=== PATIENT | female | born 1995 | race Caucasian/White ===

== ENCOUNTER → 2019-11-20 | Outpatient (CLI) | payer OTHER ==
[~2019-11-20] MED LIST: PRENTAB9 PO
== END ==
LOC: M LDO 20:28
PROVIDERS: ATTEND Obstetrics & Gynecology
DX: O47.1 False labor at or after 37 completed weeks of gestation (principal); Z3A.37 37 weeks gestation of pregnancy
CPT/HCPCS: 59025; G0378; G0463

== ENCOUNTER 2019-12-02 11:46 | Inpatient (IN) | payer OTHER ==
[~2019-12-02] VITALS: Ht 167.6 cm; Wt 94.0 kg
[2019-12-02 11:59] VITALS: BP 115/78
[2019-12-02] MEDS ORDERED: PRENTAB9 PO (12:18)
[2019-12-02 12:42] LABS: HEMATOCRIT 33.1 % (36.0-47.0); MEAN CORPUSCULAR HEMOGLOBIN 28.6 pg (27.0-33.0); MEAN CORPUSCULAR HGB CONC 33.2 g/dl (32.0-36.5); PLATELET COUNT, AUTOMATED 310 10^3/uL (150-450); RED BLOOD COUNT 3.85 10^6/uL (4.00-5.40); WHITE BLOOD COUNT 13.6 10^3/uL (4.0-10.0)
[2019-12-02] MEDS ORDERED: LACTATED RINGER'S 1000 ML IV STA (12:47)
[2019-12-02] MEDS ORDERED: SIMETHICONE 80 MG CHEW TAB PO PRN (13:00)
[2019-12-02] MEDS ORDERED: diphenhydrAMINE 25MG CAP PO PRN (13:00)
[2019-12-02] MEDS ORDERED: CALCIUM CARBONATE 500 MG CHEW U/D PO PRN (13:00)
[2019-12-02] MEDS ORDERED: LR 1,000 ML IV SCH (13:00)
--- NOTE | 2019-12-02 13:07 | HPEPDOC ---
Obstetrical History & Physical General Date of Admission Dec 02, 2019 at 12:07 History of Present Illness Patient is a 24yo at 39.3wks by redating 7wk US. C/o ctx since 0400 today. No VB or LOF. +FM. No headache or visual changes. Chief Complaint: Contractions, term Information Provided By: Patient : 3 Term: 2 Livin Care Care: Good Care Dating Final EDC: Dec 06, 2019 Final EDC by: 1st trimester (US) Antepartum Course Height (inches): 66 Pre- weight (lbs.): 185 Admission Weight (lbs.): 208 Change in Weight (lbs.): 23 Past Medical History Past Obstetrical History : Past Obstetrical History: Multigravida Type of Delivery: Spontaneous Vaginal Del. Weight of Infant (grams): 2800 Complications: No [employer] TR[employer]ER History: Abnormal Pap (HSIL during ), Human papillomavirus(HPV) Past Medical History Medical History none Surgical History: Other (x2 knee surgeries) Social History Marital Status: Family situation: Spouse/partner home Psychosocial History: No pertinent psych hx * Smoker: non-smoker Alcohol: Denies Abuse Violence Screening Have you been hit/kicked/slapp: No Have you been sexually assault: No Imunizations Tdap status: current Influenza Status: declined Allergies Coded Allergies: strawberry (Verified Allergy, Severe, FACIAL SWELLING, 12/02/19) Medications Scheduled No.137/Iron/Folic Acd ( Vitamin Tablet) 1 Each Tablet, 1 TAB PO DAILY Physical Examination Physical Examination GENERAL: Alert and oriented times three. BREAST: . ABDOMEN: Gravid and non-tender to touch. FETUS: Is vertex (VTX) by sterile vaginal examination (SVE), fetus is 2800 by Blanco. HEART RATE: Regular rate and rhythm. LUNGS: Clear to auscultation (CTA). EXTREMITIES: No edema. Laboratory Data 24H LABS Laboratory Tests 2 12/02/19 12:17: Serology Scanned Report Hepatitis B Testing 12/02/19 12:30: Nucleated Red Blood Cells % (auto) 0.0 CBC/BMP Laboratory Tests 12/02/19 12:30 Urine Culture: Contaminated Pertinent Laboratoy Data Blood Type: O+ RBC Antibody Screen: Negative HIV: Negative Hepatitis B: Negative Rapid Plasma Reagin: Nonreactive Rubella: Immune Varicella: Immune Group B Streptococcus: Negative Glucose Tolerance Test: 93 Anatomy Ultrasound Ultrasound Date: Jul 09, 2019 Placenta Location: Anterior Normal Anatomy: Yes Placenta Previa: No Estimated Weight (grams): 258 Steroid Therapy Steroid Therapy: No Vaginal Examination Dilation: 4 cm Effacement: 80% Station: -1 Presentation: Cephalic presentation Assessment Heart Rate (FHR): 120 Variability: Moderate Accelerations: Positive Decelerations: None Tocometer Contractions: Yes Frequency: every 1-5 min. Multi-drug resistant Organism: No history of MDRO Assessment/Plan Assessment Patient is a 24yo at 39.3wks by redating 7wk US. Admit for active labor and expect delivery by . Pain management per patient preference, which was discussed with her. I discussed risks of with patient of failure with section, distress, bleeding, infection, , vaginal or perin eal or neighboring organ tear. Currently, fetus is reassuring. GBS is negative, no need for antibiotics. Plan Admit and orient. 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 Diet: clears. Group B Streptococcus (GBS) negative. Labs and intravenous (IV) per unit protocol. Counseled on Pitocin augmentation. Lactated Ringers (LR): Bolus 500 mL, then at 125 mL/hr. Anticipate normal spontaneous delivery (). C-S or VAVD as appropriate which was d/w patient. Pain management per patient desire. Rosaura Morgan MD Dec 02, 2019 13:07
[2019-12-02] MEDS ORDERED: FENTANYL 2MCG/ML ROPIVACAINE 0.2% IN 0.9% NACL 100ML IVBAG As Ordered ONE (13:40)
[2019-12-02] MEDS ORDERED: OXYTOCIN 30 UNITS IN 0.9% NaCl 500ML IV BAG (J2590) As Ordered ONE (13:52)
[2019-12-02 14:19] VITALS: BP 133/96
[2019-12-02] MEDS ORDERED: ONDANSETRON 4MG/2ML VIAL IV PRN (14:30)
[2019-12-02] MEDS ORDERED: MOM 30ML SUSPENSION UDC PO PRN (14:30)
[2019-12-02] MEDS ORDERED: OXYTOCIN DRIP 30 UNITS in IV 1 EA IV SCH (14:30)
[2019-12-02] MEDS ORDERED: DIBUCAINE 1% OINTMENT 30GM TOP PRN (14:30)
[2019-12-02] MEDS ORDERED: LIDOCAINE 1% MDV 20ML VIAL INFIL ONE (14:30)
[2019-12-02] MEDS ORDERED: ANUSOL HC CREAM 30GM TOP PRN (14:30)
[2019-12-02] MEDS ORDERED: RHOGAM 300 MCG (1500 IU) INJ (J2790) IM SCH (14:30)
[2019-12-02] MEDS ORDERED: ACETAMINOPHEN 500 MG TAB PO PRN (14:30)
[2019-12-02] MEDS ORDERED: METHYLERGONOVINE MALEATE 0.2 MG TAB PO PRN (14:30)
[2019-12-02] MEDS ORDERED: MEASLES,MUMPS,RUBELLA VACCINE INJ (MMR-II) (90707) SC SCH (14:30)
--- NOTE | 2019-12-02 14:33 | DNPDOC ---
[facility] Delivery Note Delivery Note DATE OF DELIVERY: 12/02/2019 PREDELIVERY DIAGNOSIS: 39-4/7 weeks' gestation and labor. POST DELIVERY DIAGNOSIS: Delivered. PROCEDURE: Spontaneous vaginal delivery. AGRICULTURAL ECONOMICS TEACHER: Dr. Rosaura Morgan ANESTHESIA: Local. ESTIMATED BLOOD LOSS: 100 mL. FINDINGS: 7 pound 3 ounce 3260gm girl infant, Score 8/9, nuchal cord times 1. DELIVERY SUMMARY: Patient is a 24-year-old 1 now para 1 who was admitted to labor and delivery for active labor for 10hours. Patient AROM clear. Baby girl head was delivered without difficulty over intact perineum in TRINY position at 1355. The nose and mouth were bulb suctioned. x1 nuchal cord was noted and reduced. The shoulders were then delivered without difficulty. was handed on mother's belly. Cord was then clamped x2 and cut after pulsation. Pitocin bolus was started. Perineum and vagina was inspected and found to have a 1st degree laceration. This was repaired with 1% lidocaine 6cc with 2-0 chromic. The placenta was then delivered at 1410 spontaneously intact. Cord had a 3 vessel cord. EBL was 100mL. The vagina and perineum were reinspected and no further lacerations were found and hemostasis was good. Fundus was firm. Patient tolerated delivery well. Rosaura Morgan MD Dec 02, 2019 14:33
[2019-12-02 17:57] VITALS: BP 123/72
[2019-12-02] MEDS: DOCUSATE SODIUM 100 MG CAP PO SCH (21:07)
[2019-12-02] MEDS: IBUPROFEN 800 MG TAB PO PRN (22:22)
--- NOTE | 2019-12-03 04:30 | IPNPDOC ---
Progress Note Date of Service: Dec 03, 2019 Day#: 1 Progress Note SUBJECT: Patient is a 24-year-old 3 now Para 3 status post uncomplicated spontaneous vaginal delivery with post 1st degree laceration and repair, doing well day # 1. She has been ambulating, voiding spontaneously without issue and tolerating regular diet. Breast feeding without issue. Reports lochia is like a normal period. Patient is ambulating well. Reports some cramping with . Has no pain. OBJECTIVE: VITAL SIGNS: Within normal limits, afebrile. GENERAL: No acute distress HEENT: MMM BREAST: Nontender, no erythema CARDIOVASCULAR EXAMINATION: RRR RESPIRATORY EXAMINATION: Bilaterally clear ABDOMINAL EXAMINATION: Soft, appropriate tenderness, nondistended, fundus -2 PERINEUM: Intact, minimal lochia EXTREMITIES: no edema, nontender ASSESSMENT: Patient is a 24-year-old 3 now Para 3 status post uncomplicated spontaneous vaginal delivery with post 1st degree laceration and repair, doing well day # 1 around 1400. Vitals within normal limits, afebrile, hemodynamically stable with no evidence of infection. PLAN: 1. Continue care and possible discharge this afternoon. 2. Tylenol and Motrin for pain. 3. Encourage breast feeding and ambulation. VS, I&O, 24H, Fishbone Laboratory Data 24H LABS Laboratory Tests 2 12/02/19 12:17: Serology Scanned Report Hepatitis B Testing 12/02/19 12:30: Nucleated Red Blood Cells % (auto) 0.0 CBC/BMP Laboratory Tests 12/02/19 12:30 Rosaura Morgan MD Dec 02, 2019 14:37
[2019-12-03 06:10] VITALS: BP 126/76
[2019-12-03] MEDS: IBUPROFEN 800 MG TAB PO PRN ×2 (07:35→21:40)
[2019-12-03] MEDS: PRENATAL VITAMINS CHEWABLE TABLET PO SCH (08:07)
[2019-12-03] MEDS: DOCUSATE SODIUM 100 MG CAP PO SCH ×2 (08:08→19:41)
[2019-12-03 18:00] VITALS: BP 124/76
[2019-12-04 06:00] VITALS: BP 124/60
--- NOTE | 2019-12-04 06:39 | OBDS ---
[facility] Obstetrical Discharge Sum. Obstetrical Discharge Summary Date: Dec 04, 2019 : 3 Term: 3 Livin VDRL: Non-Reactive Rh: Positive Rubella: Immune Labor active Delivery Sex: Female Weight: grams (3260) Anesthesia: Local Anesthesia A/P, Post Course List any complications Admission diagnosis: Active Labor, Term Discharge diagnosis: Active Labor, Term Condition at Discharge: Stable Discharge Instructions: Home Activity: Ad earle with pelvic rest Diet: Regular Medications: As received during 36wk visit Follow-up: 6wks Other: None HOSPITAL COURSE: Patient was admitted for active labor . She had an uncomplicated . Her course was uncomplicated with normal lochia, pain and spontaneous voiding. She ambulated and ate without difficulty. Rosaura Morgan MD Dec 02, 2019 14:39 MARIAMA MARCELINO DO Dec 04, 2019 06:39
--- NOTE | 2019-12-04 06:44 | IPNPDOC ---
Progress Note Date of Service: Dec 04, 2019 Day#: 2 Progress Note SUBJECT: 24-year-old status post uncomplicated spontaneous vaginal delivery at 39+4 weeks over 1st degree perineal laceration doing well day #2. She has been ambulating, voiding spontaneously without issue and tolerating regular diet. She is formula feeding, denies any breast concerns. Reports lochia is decreasing. Patient is ambulating well. Reports pain is controlled with pain meds. Voiding without difficulty. OBJECTIVE: VITAL SIGNS: Within normal limits, afebrile. Alert and oriented times three. RESP: no exaggerated respiratory effort appreciated CARDS: well-perfused Abdomen: Fundus firm at U-1. Soft, NTTP. : small lochia, mild edema Ext: +1/4 pitting pedal edema, no calf tenderness ASSESSMENT: 24-year-old 3 now Para 3 status post uncomplicated spontaneous vaginal delivery after presenting in active labor doing well on day 2. Vitals within normal limits, afebrile, hemodynamically stable with no evidence of infection. PLAN: 1. Discharge to home today. 2. Tylenol and Motrin for pain. 3. Encourage ambulation OOB as tolerated, regular diet as tolerated 4. Routine PP visit in 6 weeks in clinic. 5. Discussed return precautions at length. VS, I&O, 24H, Fishbone Vital Signs/I&O Vital Signs Date Time Temp Pulse Resp B/P (MAP) Pulse Ox O2 Delivery O2 Flow Rate FiO2 12/03/19 18:00 97.8 74 8 124/76 (92) 98 Room Air MARIAMA MARCELINO DO Dec 04, 2019 06:44
[2019-12-04] MEDS: DOCUSATE SODIUM 100 MG CAP PO SCH (08:16)
[2019-12-04] MEDS: IBUPROFEN 800 MG TAB PO PRN (08:16)
[2019-12-04] MEDS: PRENATAL VITAMINS CHEWABLE TABLET PO SCH (08:16)
== END 2019-12-04 11:40 | disposition home or self-care (01) | DRG 807 ==
LOC: M LDO 11:46 → EDBD 12:07 → M LDI 12:07 → M OBS 16:31
PROVIDERS: ADMIT Obstetrics & Gynecology; ATTEND Obstetrics & Gynecology
PROC: 10E0XZZ Delivery of Products of Conception, External Approach (ICD-10-PCS; principal; 2019-12-02)
PROC: 10907ZC Drainage of Amniotic Fluid, Therapeutic from Products of Conception, Via Natural or Artificial Opening (ICD-10-PCS; 2019-12-02)
PROC: 0HQ9XZZ Repair Perineum Skin, External Approach (ICD-10-PCS; 2019-12-02)
DX: O69.81X0 Labor and delivery complicated by cord around neck, without compression, not applicable or unspecified (principal); Z37.0 Single live birth; Z3A.39 39 weeks gestation of pregnancy; O70.0 First degree perineal laceration during delivery

== ENCOUNTER 2020-07-30 09:48 | Day surgery (SDC) | payer OTHER ==
[~2020-07-30] VITALS: Ht 170.2 cm; Wt 98.0 kg
[~2020-07-30 09:48] MED LIST changes: +LR 1,000 ML IV ONE; +birth control pill PO
[2020-07-30 10:33] LABS: HEMATOCRIT 38.5 % (36.0-47.0); HEMOGLOBIN 12.2 g/dl (12.0-15.5); MEAN CORPUSCULAR HEMOGLOBIN 26.5 pg (27.0-33.0); MEAN CORPUSCULAR HGB CONC 31.7 g/dl (32.0-36.5); MEAN CORPUSCULAR VOLUME 83.5 fl (80.0-96.0); PLATELET COUNT, AUTOMATED 344 10^3/uL (150-450); RED BLOOD COUNT 4.61 10^6/uL (4.00-5.40); WHITE BLOOD COUNT 9.9 10^3/uL (4.0-10.0)
[2020-07-30] MEDS ORDERED: MIDAZOLAM INJ 2MG/2ML VIAL (J2250 PER 1MG) As Ordered ONE (10:35)
[2020-07-30] MEDS ORDERED: ROCURONIUM BROMIDE 50 MG/5 ML VIAL As Ordered ONE ×2 (10:35→11:07)
[2020-07-30] MEDS ORDERED: propofoL 200 MG/20 ML VIAL As Ordered ONE ×2 (10:35→11:05)
[2020-07-30] MEDS ORDERED: ONDANSETRON 4MG/2ML VIAL As Ordered ONE (10:35)
[2020-07-30] MEDS ORDERED: fentaNYL 100 MCG/2 ML INJECTION (J3010) As Ordered ONE (10:35)
[2020-07-30] MEDS ORDERED: dexameTHASONE 4 MG/ML 1ML VIAL (J1100 PER 1MG) As Ordered ONE (10:35)
[2020-07-30] MEDS ORDERED: LIDOCAINE 2% 100MG/5ML SDV (FOR ANES.) As Ordered ONE ×2 (10:35→11:06)
[2020-07-30] MEDS ORDERED: BUPIVACAINE HCL 0.5% 30 ML VIAL As Ordered ONE (10:57)
[2020-07-30 11:13] LABS: APPEARANCE, URINE CLEAR (CLEAR); BACTERIA, URINE AUTO NEGATIVE (NEGATIVE); BILIRUBIN, URINE AUTO NEGATIVE (NEGATIVE); BLOOD, URINE BLOOD NEGATIVE (NEGATIVE); COLOR, URINE YELLOW (YELLOW); GLUCOSE, URINE (UA) AUTO NEGATIVE (NEGATIVE); KETONE, URINE AUTO NEGATIVE (NEGATIVE); LEUKOCYTE ESTERASE, URINE AUTO NEGATIVE (NEGATIVE); MUCUS, URINE SMALL (NEGATIVE); NITRITE, URINE AUTO NEGATIVE (NEGATIVE); PROTEIN, URINE AUTO 1+ mg/dL (NEGATIVE); RBC, URINE AUTO 3 /HPF (0-3); SPECIFIC GRAVITY URINE AUTO 1.024 (1.002-1.035); SQUAMOUS EPITHELIAL CELL UR AU 4 /HPF (0-6); UROBILINOGEN, URINE AUTO 0.2 mg/dL (0.0-2.0); WBC, URINE AUTO 1 /HPF (0-3)
[2020-07-30] MEDS ORDERED: SILVER NITRATE APPLICATOR As Ordered ONE (12:31)
[2020-07-30] MEDS ORDERED: MEPERIDINE INJ 25 MG/ML VIAL (J2175) As Ordered ONE (12:54)
[2020-07-30] MEDS ORDERED: ONDANSETRON 4MG/2ML VIAL IV PRN (13:00)
[2020-07-30] MEDS ORDERED: fentaNYL 100 MCG/2 ML INJECTION (J3010) IV PRN (13:00)
[2020-07-30] MEDS ORDERED: oxyCODONE 5MG TAB PO PRN (13:00)
[2020-07-30] MEDS ORDERED: MEPERIDINE INJ 25 MG/ML VIAL (J2175) IV PRN (13:00)
[2020-07-30] MEDS ORDERED: LR 1,000 ML IV SCH (13:00)
[2020-07-30 13:22] VITALS: BP 138/100
== END 2020-07-30 15:10 | disposition home or self-care (01) ==
LOC: M SDC 09:48
DX: Z30.2 Encounter for sterilization (principal); Z87.891 Personal history of nicotine dependence; Z91.018 Allergy to other foods; Z79.899 Other long term (current) drug therapy
CPT/HCPCS: 36415; 58661; 81001; 81025; 85027; 86850; 86900; 86901; 88302; J1100; J2175; J2250; J2405; J3010

== ENCOUNTER 2020-08-04 18:24 | Emergency (ER) | payer OTHER ==
[~2020-08-04] VITALS: Ht 167.6 cm; Wt 216.0 kg
[~2020-08-04 18:24] MED LIST changes: -LR 1,000 ML IV ONE
[2020-08-04] MEDS ORDERED: NITROFURANTOIN (MACROBID) 100 MG CAP PO ONE (21:30)
[2020-08-04] MEDS ORDERED: MACR100C43 PO (21:33)
[2020-08-04] MEDS ORDERED: ACETAMINOPHEN 500 MG TAB PO ONE (21:35)
[2020-08-04 21:41] VITALS: BP 123/84
== END 2020-08-04 21:57 | disposition home or self-care (01) ==
LOC: M ED 18:24
DX: N99.820 Postprocedural hemorrhage of a genitourinary system organ or structure following a genitourinary system procedure (principal); Z98.51 Tubal ligation status; F17.200 Nicotine dependence, unspecified, uncomplicated; Z91.018 Allergy to other foods